=== PATIENT | male | born 1955 | race Caucasian/White ===

== ENCOUNTER 2019-03-26 08:04 | Day surgery (SDC) | payer OTHER ==
[2019-03-26] MEDS ORDERED: PROPOFOL 20 ML ×2 (08:52→11:11)
[2019-03-26] MEDS ORDERED: ONDANSETRON 4 MG INJ IV (10:30)
== END 2019-03-26 11:53 | disposition home or self-care (01) ==
LOC: GIL 08:04
DX: Z12.11 Encounter for screening for malignant neoplasm of colon (principal); K64.8 Other hemorrhoids; I10 Essential (primary) hypertension; E11.9 Type 2 diabetes mellitus without complications
CPT/HCPCS: 45380; 82962; 88305